=== PATIENT | female | born 1950 | race Caucasian/White ===

== ENCOUNTER 2021-10-25 13:19 | Outpatient (CLI) | payer MEDICARE, MEDICAID, SELFPAY ==
--- NOTE | 2021-10-25 13:27 | CT_ITS ---
WS: [id number] LDCT LUNG CANCER SCREENING HISTORY: HX OF TOBACCO USE TECHNIQUE: Axial imaging performed from the apices to 1 cm below the costophrenic angles. Coronal and sagittal reformats are submitted with axial MIP series. All CT scans at [facility] use at least one of these dose optimization techniques: automated exposure control; mA and/or kV adjustment per patient size (includes targeted exams where dose is matched to clinical indication); or iterativ e reconstruction. DLP: 79.10 mGy.cm DIvol: Mean CTDIvol: 1.60 (mGy) COMPARISON: None available. Diagnostic quality: Satisfactory Lung Nodules: No pulmonary nodules. Benign granuloma in the LEFT upper lobe. No endobronchial lesions . Lungs: Severe hyperexpansion with bullous emphysema. Heart: Mildly enlarged heart. No pericardial effusion. Other findings: Small benign appearing mediastinal and hilar lymph nodes. Atherosclerotic changes wit hin the aortic arch. No aneurysm. Mildly prominent pulmonary artery. LEFT adrenal adenoma. CT/CT lung screening [id number] IMPRESSION: LUNG-RADS: 1-Negative FOLLOW UP: 12 Month: Continue annual screening with LDCT OTHER FINDINGS (S MODIFIER): None.
== END 2021-10-25 13:20 | disposition home or self-care (01) ==
LOC: RAD 13:22
PROVIDERS: Family Provider Nurse Practitioner Family; PCP Nurse Practitioner Family; Visit Provider Nurse Practitioner Family
DX: Z12.2 Encounter for screening for malignant neoplasm of respiratory organs (principal); Z87.891 Personal history of nicotine dependence
CPT/HCPCS: 71271

== ENCOUNTER 2021-11-08 13:54 | Outpatient (CLI) | payer MEDICARE, MEDICAID, SELFPAY ==
--- NOTE | 2021-11-08 13:59 | MM_ITS ---
WS: [id number] BILATERAL 3D TOMOSYNTHESIS DIGITAL SCREENING MAMMOGRAPHY WITH CAD CLINICAL INFORMATION: SCREENING HISTORY: Screening mammogram. Lumpy RIGHT breast COMPARISON: TECHNIQUE: Bilateral CC and MLO views. FINDINGS: Scattered fibroglandular densities bilaterally. Punctate and lucent centered calcifications. Vascular calcification. No suspicious focal mass, asymmetry, calcifications, or architectural distortion. No evidence of malignancy. MM/[place] [id number] IMPRESSION: BI-RADS: 2-Benign FOLLOW UP: 1 Year Follow-up Recommend return to annual screening mammography.
== END 2021-11-08 13:55 | disposition home or self-care (01) ==
LOC: RAD 13:54
PROVIDERS: Family Provider Nurse Practitioner Family; PCP Nurse Practitioner Family; Visit Provider Nurse Practitioner Family
DX: Z12.31 Encounter for screening mammogram for malignant neoplasm of breast (principal)
CPT/HCPCS: 77063; 77067

== ENCOUNTER 2021-11-21 13:11 | Outpatient (CLI) | payer MEDICARE, MEDICAID, SELFPAY | END 2021-11-21 13:12 | disposition home or self-care (01) | LOC: ENDOOACUTE 11-23 09:30 | PROVIDERS: Family Provider Nurse Practitioner Family; PCP Nurse Practitioner Family; Referring Provider Nurse Practitioner Family; Visit Provider Internal Medicine | DX: E27.8 Other specified disorders of adrenal gland (principal); F17.200 Nicotine dependence, unspecified, uncomplicated | CPT/HCPCS: 82088; 84244; 99204 ==

== ENCOUNTER 2021-11-23 10:02 | Outpatient (CLI) | payer MEDICARE, MEDICAID, SELFPAY ==
[2021-11-23 12:12] LABS: Urine Creatinine 21 mg/dL (28-217)
[2021-11-23 12:14] LABS: Creatinine 24 Hour Urine 640.5 mg/dL (601-1689); Total Volume Urine 3050 ml
[2021-11-27 20:53] LABS: Calculated Total (E+NE) 30 mcg/24 h (26-121)
[2021-11-28 18:44] LABS: Free Cortisol Urine 21.7 mcg/24 h (4.0-50.0); Total Urine 2500 mL; Urine Creatinine 0.55 g/24 h (0.50-2.15)
== END 2021-11-23 10:03 | disposition home or self-care (01) ==
LOC: LAB 10:10
PROVIDERS: Internal Medicine; PCP Nurse Practitioner Family; Visit Provider Nurse Practitioner Family
DX: E27.8 Other specified disorders of adrenal gland (principal)
CPT/HCPCS: 82384; 82530; 82570

== ENCOUNTER 2022-01-16 06:58 | Outpatient (CLI) | payer MEDICARE, MEDICAID, SELFPAY ==
[2022-01-16 07:42] LABS: Blood Urea Nitrogen 10 mg/dL (8-23)
[2022-01-16] MEDS: iohexol 350 mg/mL 100 mL Btl IV (07:55)
--- NOTE | 2022-01-16 09:00 | CT_ITS ---
WS: [id number] CT adrenals with and without contrast. HISTORY: adrenal mass Noncontrast 2 mm imaging is performed through the abdomen with attention to the adrenal glands. Addit ional 1 minute and 15 minute delayed images are then performed through the adrenal glands. CONTRAST: Omnipaque 350; 95 mL IV. DLP: 1253.[address] scans at [facility] use at least one of these dose optimization techniques: automated e xposure control; mA and/or kV adjustment per patient size (includes targeted exams where dose is matc hed to clinical indication); or iterative reconstruction. COMPARISON: Lung screening 10/25/2021 Lower thorax: Chronic emphysematous changes at the lung bases. Liver: Normal. No intrahepatic dilatation. Gallbladder: Normal. Pancreas: Normal. Spleen: Normal. ADRENAL GLANDS. RIGHT: Normal. No mass or enlargement. LEFT: Very mild thickening of the LEFT adrenal gland. Very slight bulbous contour of the body of the adrenal measures 8 x 10 mm. Hounsfield units are low on the noncontrast study consistent with an breanna brianne. Absolute washout value consistent with adenoma. No solid mass. Mild hyperplasia of the medial an d lateral limbs. Right kidney: Normal size. 2 small to characterize low-attenuation nodule in the mid kidney. Left kidney: Normal size. Low-attenuation cortical nodules. 2 small to characterize. No solid mass or obstruction. Aorta: Mild atherosclerosis aorta. Calcifications extend into the proximal mesenteric arteries. GI tract: As visualized in the upper abdomen normal. No adenopathy or free fluid. Abdominal wall: No hernia. Visualized osseous structures: Unremarkable. CT/CT abdomen wo/w con [id number] IMPRESSION: 1. Very tiny LEFT adrenal adenoma involving the body with additional hyperplas ia of the medial and lateral limbs. 2. Normal RIGHT adrenal gland. 3. Emphysema.
== END 2022-01-16 06:59 | disposition home or self-care (01) ==
LOC: RAD 06:59
PROVIDERS: PCP Nurse Practitioner Family; Visit Provider Internal Medicine
DX: E27.8 Other specified disorders of adrenal gland (principal); D35.02 Benign neoplasm of left adrenal gland; J43.2 Centrilobular emphysema; J96.11 Chronic respiratory failure with hypoxia; J96.12 Chronic respiratory failure with hypercapnia; F17.210 Nicotine dependence, cigarettes, uncomplicated; Z99.81 Dependence on supplemental oxygen
CPT/HCPCS: 74170; 82565; 84520; 99204

== ENCOUNTER 2023-04-01 12:58 | Emergency (ER) | payer MEDICARE, MEDICAID, SELFPAY ==
[2023-04-01] MEDS: HYDROcodone-acetaminophen 5-325 mg Tablet 1 TAB PO (13:34)
[2023-04-01 13:36] VITALS: BMI 21.9
--- NOTE | 2023-04-01 13:47 | W.ED.SKABFB ---
HPI - Skin/Abscess/Foreign Bdy General: Chief complaint: Skin/Abscess/Foreign Body Stated complaint: lump on right butt cheek Time Seen by Provider: 04/01/23 13:16 Source: patient Mode of arrival: ambulatory Limitations: no limitations History of Present Illness: 72 female states she has had an abscess to her right buttocks its been there for over a week she states she started having some increased pain rates her pain a 6 out of 10 especially the setting denies any fever denies any drainage denies any Associated symptoms: Deny chills, fever(s), nausea or vomiting Review of Systems Const: Denies: fever(s), chills, body aches or change in appetite ENMT: Denies: throat pain or dental pain Card: Denies: chest pain Resp: Denies: dyspnea GI: Denies: abdominal pain, nausea, vomiting or diarrhea Musc: Denies: neck pain or back pain Skin/Breast: Denies: rash Neuro: Denies: headache(s) PFSH ED PFSH: Medical History High cholesterol Stroke Surgical History Hx of hysterectomy Family History Father Heart attack Diabetes Mother Tuberculous abscess of lung Social History Smoking and tobacco/nicotine status: current every day tobacco/nicotine user (0.5 ppd) cigarettes Packs smoked per day: 1 Years cigarettes smoked: 43 Quit status (tobacco/nicotine): not considering quitting Second hand smoke exposure: No Alcohol intake: never Substance/Drug Use: never Adopted: No Caregiver/support person: Yes Lives independently: Yes Household members: none Housing: House Marital status: / Number of children: 3 Highest education level completed: 11th Grade service: No Current occupational status: retired Physical Exam Const: COMMON NORMALS: no acute distress and patient oriented x3 HENMT: COMMON NORMALS: normocephalic and atraumatic HEAD & SCALP: normocephalic and atraumatic Eye: COMMON NORMALS: conjunctivae normal CONJUNCTIVA: Yes conjunctivae normal Neck/C-Spine: COMMON NORMALS: supple Chest: COMMONS NORMALS: normal inspection of the chest Resp: COMMON NORMALS: normal respiratory effort GI: OTHER: large abscess noted to right buttocks Extremity: COMMON NORMALS: normal to inspection Neuro: COMMON NORMALS: patient oriented x3 Procedures Abscess I/D Site: other (buttock) Side (if applicable): right Local Anesthetic: lidocaine 1% Amount of anesthesia used (mL): 8 Technique: incised with #11 blade Packing used?: iodoform MDM - Skin/Abscess/Foreign Bdy Medicial Decision Making patient presents here with an abscess to the right buttocks abscess was incised and drained packing was placed she is to return in 2 days for packing removal we will place her on clindamycin she is to follow-up return if worsening she understands agrees to plan. Medical Records I reviewed the patient's medical records. No radiology studies performed this visit Discharge Plan Discharge Patient Disposition: Home Clinical Impression: Abscess of buttock, right Condition: Stable Prescriptions: New hydrocodone-acetaminophen 5-325 mg tablet 1 tab PO Q6H PRN (Reason: pain) Qty: 14 0RF clindamycin HCl 300 mg capsule 300 mg PO Q8H 7 Days Qty: 21 0RF No Action (DME) oxygen-air delivery systems Device See Rx Instructions .Route Rx Instructions: As directed clorazepate dipotassium 15 mg tablet 7.5 mg PO BID PRN multivitamin Tablet 1 tab PO DAILY albuterol sulfate 90 mcg/actuation HFA aerosol inhaler 1 puff inhalation QID PRN naproxen 500 mg tablet 500 mg PO BID PRN (Reason: pain) ezetimibe 10 mg tablet 10 mg PO DAILY Bevespi Aerosphere 9-4.8 mcg HFA aerosol inhaler 2 puff inhalation BID Qty: 10.7 3RF Discharge Orders: Discharge ED (Routine); Ordered 04/01/23 Ordered By: Ratna Emery Referrals: Carmel Pierre FNP-C [Primary Care Provider] - 1-3 days Discharge Diet: Advance as tolerated Discharge Activity: Resume usual activity Patient Instructions: Abscess (ED) Activity Restrictions/Additional Instructions: return in 2-3 days for packing removal Coding Level of Care Code ED Chief Technology Officer for Natalyg Yasmani
[2023-04-01] MEDS: clindamycin 150 mg Capsule 300 MG PO (13:54)
[2023-04-01] MEDS: lidocaine 1% INJ 10 mL (per mL) 20 ML INJECTION (13:57)
[2023-04-01 14:00] VITALS: BP 127/68; PULSE 111; O2SAT 91
== END 2023-04-01 13:57 | disposition home or self-care (01) ==
PROVIDERS: Emergency Provider Emergency Medicine; PCP Nurse Practitioner Family
DX: L02.31 Cutaneous abscess of buttock (principal); Z86.73 Personal history of transient ischemic attack (TIA), and cerebral infarction without residual deficits; F17.210 Nicotine dependence, cigarettes, uncomplicated
CPT/HCPCS: 10060; 87070; 87077; 87186; 99283

== ENCOUNTER 2023-04-03 10:26 | Emergency (ER) | payer MEDICARE, MEDICAID, SELFPAY ==
[2023-04-03 10:44] VITALS: BP 163/74; PULSE 95; RESP 18; TEMP 36.7; O2SAT 88; BMI 23.3
--- NOTE | 2023-04-03 11:01 | W.ED.WOUNDLC ---
HPI - Wound/Laceration General: Chief Complaint: Wound/Laceration Stated Complaint: needs a hole re packed Time Seen by Provider: 04/03/23 10:31 Source: patient Mode of arrival: ambulatory Limitations: no limitations History of Present Illness: 72 yr old female presents to the ER for wound packing. Pt had an abscess on the R buttock that she had opened 2 days ago. Pt reports it was MRSA. She reports pain has improved and there is still some active drainage from the wound. Packing fell out this am so she was told to come back for repacking. No fevers reported. Review of Systems General: Reports: 10 or more systems reviewed and unremarkable except in HPI and below PFSH ED PFSH: Medical History High cholesterol Stroke Surgical History Hx of hysterectomy Family History Father Heart attack Diabetes Mother Tuberculous abscess of lung Social History Smoking and tobacco/nicotine status: current every day tobacco/nicotine user (0.5 ppd) cigarettes Packs smoked per day: 1 Years cigarettes smoked: 43 Quit status (tobacco/nicotine): not considering quitting Second hand smoke exposure: No Alcohol intake: never Substance/Drug Use: never Adopted: No Caregiver/support person: Yes Lives independently: Yes Household members: none Housing: House Marital status: / Number of children: 3 Highest education level completed: 11th Grade service: No Current occupational status: retired Physical Exam Const: COMMON NORMALS: no acute distress, average body habitus, patient oriented x3, healthy appearing and well nourished Resp: COMMON NORMALS: normal respiratory effort EFFORT & INSPECTION: Yes able to speak in complete sentences Cardio: COMMON NORMALS: regular rate RATE: regular rate Extremity: COMMON NORMALS: normal to inspection and no pedal edema Neuro: COMMON NORMALS: patient oriented x3 and moves all extremities Psych: COMMON NORMALS: mental status grossly normal and Normal thought process present THOUGHT PROCESS: Normal thought process present Skin: NARRATIVE SKIN EXAM: pt has an open wound the R buttock. No active drainage. Minimal tenderness Course ED course: Pt presents for wound back on the R buttock. Vital Signs: Vital signs: Vital Signs Temperature 98.1 F 04/03/23 10:44 Pulse Rate 95 04/03/23 10:44 Respiratory Rate 18 04/03/23 10:44 Blood Pressure 163/74 04/03/23 10:44 Pulse Oximetry 88 L 04/03/23 10:44 Oxygen Delivery Me thod Nasal Cannula 04/03/23 10:44 Oxygen Flow Rate 2 04/03/23 10:44 MDM - Wound/Laceration Medical Decision Making Wound is gaping and looks good. No erythema surrounding it. Healthy tissue at the base. No active drainage. Wound was packed with 1/4 inch packing and a new dressing was placed. Home wound care discussed. F/u with PCP in 5-7 days. No radiology studies performed this visit Critical Care Time Critical Care Time: Critical Care Time: No Discharge Plan Discharge Patient Disposition: Home Clinical Impression: Abscess of buttock, right Condition: Stable Prescriptions: No Action (DME) oxygen-air delivery systems Device See Rx Instructions .Route Rx Instructions: As directed clorazepate dipotassium 15 mg tablet 7.5 mg PO BID PRN multivitamin Tablet 1 tab PO DAILY albuterol sulfate 90 mcg/actuation HFA aerosol inhaler 1 puff inhalation QID PRN naproxen 500 mg tablet 500 mg PO BID PRN (Reason: pain) ezetimibe 10 mg tablet 10 mg PO DAILY Bevespi Aerosphere 9-4.8 mcg HFA aerosol inhaler 2 puff inhalation BID Qty: 10.7 3RF hydrocodone-acetaminophen 5-325 mg tablet 1 tab PO Q6H PRN (Reason: pain) Qty: 14 0RF clindamycin HCl 300 mg capsule 300 mg PO Q8H 7 Days Qty: 21 0RF Discharge Orders: Discharge ED (Routine); Ordered 04/03/23 Ordered By: Christina Horton Referrals: Carmel Pierre FNP-C [Primary Care Provider] - Discharge Diet: Usual diet Discharge Activity: Resume usual activity Patient Instructions: Opioid Safety, Pain Management Activity Restrictions/Additional Instructions: Leave packing in for the next 2-3 days. When it falls out you are okay to leave it out. Keep wound clean. F/U with PCP in 5-7 days. Return to the ER with any new or worsening symptoms. Coding Level of Care Code ED Corporate Quality Engineer for Cheryl Gruber
== END 2023-04-03 11:25 | disposition home or self-care (01) ==
PROVIDERS: Emergency Provider Physician Assistant; PCP Nurse Practitioner Family
DX: L02.31 Cutaneous abscess of buttock (principal); Z86.73 Personal history of transient ischemic attack (TIA), and cerebral infarction without residual deficits; F17.210 Nicotine dependence, cigarettes, uncomplicated
CPT/HCPCS: 99282

== ENCOUNTER 2024-07-04 13:45 | Emergency (ER) | payer MEDICARE, MEDICAID, SELFPAY ==
--- NOTE | 2024-07-04 13:47 | XR_ITS ---
WS: [id number] Exam: XR chest 1V portable [id number] Date/Time of Exam: 07/04/2024 1:54 PM Reason For Exam: dyspnea/cough No previous exams. Lungs are hyperinflated and clear. Coarsening of interstitial markings throughout both lungs. Normal cardiomediastinal silhouette. Regional bony elements appear normal. No pleural effusion. XR/XR chest 1V portable [id number] IMPRESSION: 1. No acute cardiopulmonary finding. Coarsening of interstitial markings that m ay be chronic.
--- NOTE | 2024-07-04 13:48 | ECG_ITS ---
[facility]: 2024-[facility]04 Pat Name: Qi Marmolejo Department: Room: Gender: Female Systems Mgr: : [id number] Requested By: John Horton Order Number: [id number] Mone MD: Anuj Sanchez M.D. Measurements Intervals [place] Rate: 102 P: 78 MA: 139 QRS: 82 QRSD: 78 T: 72 QT: 339 QTc: 442 Interpretive Statements SINUS TACHYCARDIA WITH OCCASIONAL SUPRAVENTRICULAR PREMATURE COMPLEXES NONSPECIFIC T-WAVE ABNORMALITY No previous ECG available for comparison Electronically Signed On 07-07-2024 12:41:29 BEEF SPLITTER by Anuj Sanchez M.D. [email or web address]
[2024-07-04 13:49] VITALS: BP 99/58; PULSE 113; RESP 22; TEMP 36.8; O2SAT 92; BMI 20.5
--- NOTE | 2024-07-04 13:53 | ED_ITS ---
HPI - SOB/Dyspnea 2 General: Chief Complaint: Shortness of Breath/Dyspnea Stated Complaint: sob Time Seen by Provider: 07/04/24 13:47 History of Present Illness: HPI Narrative: 73-year-old female presents to the emerg ency room with report of being short of breath at the clinic. They reported O2 sats at 60% by nasal cannula however it was found that her oxygen regulator was not working properly when she was placed on her baseline oxygen at 2 L she improved she did require a little bit more than her usual and we had increased her to 2.5lpm and her sat was at 98%. She denies any chest pain. She did have a fever. Patient reports nonproductive cough and wheezing. 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 11/21/21 07/04/24 tablet multivitamin 1 tab PO DAILY 11/21/2106/09 oxygen-air delivery systems 11/21/21 07/04/24 albuterol sulfate 90 mcg/actuation 1 puff inhalation Q ID PRN 01/16/22 07/04/24 aerosol inhaler Shortness Of Breath Or Wheez ing naproxen 500 mg tablet 500 mg PO BID PRN pain 01/1607/04/24 acetaminophen 325 mg tablet 650 mg PO QID PRN Fever Or Pain 07/04/24 07/04/24 (Tylenol) ibuprofen 200 mg tablet (Advil) 800 mg PO Q6H PRN Feve r Or Pain 07/04/24 07/04/24 meclizine 25 mg tablet 25 mg PO DAILY PRN menier's disease 07/04/24 07/04/24 Previous Rx's ?Medication ?Instructions ?Recorded glycopyrrolate 9 mcg-formoterol 2 puff inhalation BID #10.7 grams 10/01/22 4.8 mcg HFA aerosol inhaler (Bevespi Aerosphere) albuterol sulfate 90 mcg/actuation 2 inh inhalation Q4 H PRN shortness 07/04/24 aerosol inhaler of breath or wheezing #18 gr ams methylprednisolone 4 mg tablets in See Rx Instructions PO .COMPLEX 01/27/25 a dose pack (Medrol (Derek)) #21 ea Allergies Allergy/AdvReac Type Severity Reaction Status Date / Time sulfamethoxazole (From Allergy swell and Verified 04/03/23 10:45 Bactrim) itch and rash trimethoprim (From Bactrim) Allergy swell and Verified 04/03/23 10:45 itch and rash Review of Systems 2 Const: Denies: fever(s) or chills Card: Denies: chest pain Resp: Reports: dyspnea, productive cough, wheezing and chest congestion GI: Denies: abdominal pain : Denies: dysuria, urinary frequency or urinary urgency Musc: Denies: neck pain or back pain Skin/Breast: Denies: rash PFSH ED 2 PFSH: Medical History Stroke High cholesterol Surgical History Hx of hysterectomy Family History Father Heart attack Diabetes Mother Tuberculous abscess of lung Social History Smoking and tobacco/nicotine status: current every day tobacco/nicotine user (0.5 ppd) cigarettes Packs smoked per day: 1 Years cigarettes smoked: 43 Quit status (tobacco/nicotine): not considering quitting Second hand smoke exposure: No Alcohol intake: never Substance/Drug Use: never Adopted: No Caregiver/support person: Yes Lives independently: Yes Household members: none Housing: House Marital status: / Number of children: 3 Highest education level completed: 11th Grade service: No Current occupational status: retired Physical Exam 2 Const: GENERAL APPEARANCE: cooperative ORIENTATION/CONSCIOUSNESS: Yes awake, Yes oriented to person, Yes oriented to place and Yes oriented to time HENMT: COMMON NORMALS: normocephalic, atraumatic and hearing grossly normal bilaterally HEAD & SCALP: normocephalic and atraumatic Resp: COMMON NORMALS: normal respiratory effort, No retractions, No use of accessory muscles and clear to auscultation bilaterally AUSCULTATION: clear to auscultation bilaterally Cardio: COMMON NORMALS: regular rate, regular rhythm and No murmurs present (Cardio) RATE: regular rate RHYTHM: regular rhythm GI: COMMON NORMALS: Soft to palpation and No hepatosplenomegaly present A USCULTATION: Yes normoactive bowel sounds PALPATION: Yes Soft to palpation, No Tenderness to palpation present (GI), No Guarding due to palpation present (GI) and Yes No hepatosplenomegaly present Extremity: COMMON NORMALS: normal to inspection, capillary refill normal, no clubbing, cyanosis or edema, no calf tenderness and no pedal edema Neuro: SENSORIUM/ORIENTATION: Yes oriented to person, Yes oriented to place and Yes oriented to time Skin: COMMON NORMALS: no rashes or lesions noted GENERAL SKIN EXAM: no rashes or lesions noted Course 2 Vital Signs: Vital signs: Vital Signs Temperature 98.3 F 07/04/24 13:49 Pulse Rate 97 07/04/24 16:06 Respiratory Rate 18 07/04/24 15:53 Blood Pressure 111/61 07/04/24 16:06 Pulse Oximetry 98 07/04/24 16:06 Oxygen Delivery Me thod Nasal Cannula 07/04/24 15:53 Oxygen Flow Rate 2.5 07/04/24 15:53 MDM - SOB/Dyspnea Medical Decision Making RSV bronchiolitis. No sign of acute infiltrate patient tolerating well slight increase in oxygen will discharge home steroid taper continue to aggressively use albuterol nebulizers and inhalers continue your other medications follow-up with your primary care doctor about improvement if worsens return to the emergency room Medical Records I reviewed the patient's medical records. Lab Data I reviewed the patient's lab results. 07/04/24 14:15 07/04/24 14:15 Labs/Radiology: Radiology Impressions Chest X-Ray 07/04/24 13:47 IMPRESSION: 1. No acute cardiopulmonary finding. Coarsening of interstitial markings that may be chronic. Laboratory Results WBC 10.14 10^3/uL (3.29-11.43) 07/04/24 14:15 RBC 4.27 10^6/uL (3.85-5.65) 07/04/24 14:15 Hgb 13.00 g/dL (11.27-16.99) 07/04/24 14:15 Hct 39.4 % (36-47) 07/04/24 14:15 MCV 92.3 fl (85-98) 07/04/24 14:15 MCH 30.4 pg (27-33) 07/04/24 14:15 MCHC 33.0 g/dL (30-55) 07/04/24 14:15 RDW 13.2 % (12.1-15.1) 07/04/24 14:15 Plt Count 222 10^3/cmm (157-399) 07/04/24 14:15 MPV 10.4 fL (7.4-10.4) 07/04/24 14:15 Neut % (Auto) 83.1 % 07/04/24 14:15 Lymph % (Auto) 8.2 % 07/04/24 14:15 Woodruff % (Auto) 8.0 % 07/04/24 14:15 Eos % (Auto) 0.0 % 07/04/24 14:15 Baso % (Auto) 0.3 % 07/04/24 14:15 Neut # (Auto) 8.43 10^3/uL (1.8-7.7) H 07/04/24 14:15 Lymph # (Auto) 0.8 10^3/uL (0.8-4.8) 07/04/24 14:15 Woodruff # (Auto) 0.8 10^3/uL (0.2-0.9) 07/04/24 14:15 Eos # (Auto) 0.0 10^3/uL (0.0-0.8) 07/04/24 14:15 Baso # (Auto) 0.0 10^3/uL (0.0-0.1) 07/04/24 14:15 Nucleated RBC % (auto) 0 % 07/04/24 14:15 Nucleated RBCs # 0.0 /100WBC 07/04/24 14:15 Sodium 134 mmol/L (136-145) L 07/04/24 14:15 Potassium 3.9 mmol/L (3.5-5.1) 07/04/24 14:15 Chloride 95 mmol/L (98-107) L 07/04/24 14:15 Carbon Dioxide 27 mmol/L (22-29) 07/04/24 14:15 Anion Gap 15.9 (5-19) 07/04/24 14:15 BUN 9 mg/dL (8-23) 07/04/24 14:15 Creatinine 0.8 mg/dL (0.5-0.9) 07/04/24 14:15 GFR Calculation Not Reportable 07/04/24 14:15 Glucose 114 mg/dL (65-115) 07/04/24 14:15 Calculated Osmolality 278 mOsm/kg (285-295) L 07/04/24 14:15 Lactic Acid 1.2 mmol/L (0.5-2.2) 07/04/24 14:15 Calcium 8.4 mg/dL (8.5-10.5) L 07/04/24 14:15 Total Bilirubin 0.2 mg/dL (0.15-1.2) 07/04/24 14:15 AST 22 U/L (0-32) 07/04/24 14:15 ALT 14 U/L (0-33) 07/04/24 14:15 Alkaline Phosphatase 73 U/L (35-105) 07/04/24 14:15 Troponin T Baseline 30 ng/L (0-10) H 07/04/24 14:15 Total Protein 6.1 g/dL (6.6-8.7) L 07/04/24 14:15 Albumin 3.8 g/dL (3.5-5.2) 07/04/24 14:15 Globulin 2.3 g/dL (1.3-4.6) 07/04/24 14:15 Coronavirus (PCR) Negative (Negative) 07/04/24 14:19 Influenza A (PCR) Negative (Negative) 07/04/24 14:19 Influenza Type B (PCR) Negative (Negative) 07/04/24 14:19 RSV (PCR) Positive (Negative) A 07/04/24 14:19 All radiology interpretation(s) finalized by discharge Discharge Plan Discharge Patient Disposition: Home Clinical Impression: RSV bronchiolitis, Acute exacerbation of chronic obstructive airways disease Condition: Stable Prescriptions: New methylprednisolone [Medrol (Derek)] 4 mg tablets,dose pack See Rx Instructions .ROUTE .COMPLEX Qty: 21 0RF Rx Instructions: orally per package directions albuterol sulfate 90 mcg/actuation HFA aerosol inhaler 2 inh INHALATION Q4H PRN (Reason: shortness of breath or wheezing) Qty: 18 0RF No Action (DME) oxygen-air delivery systems Device See Rx Instructions .Route Rx Instructions: As directed clorazepate dipotassium 15 mg tablet 7.5 mg PO BID PRN (Reason: menier's disease ) multivitamin Tablet 1 tab PO DAILY albuterol sulfate 90 mcg/actuation HFA aerosol inhaler 1 puff inhalation QID PRN (Reason: Shortness Of Breath Or Wheezing) naproxen 500 mg tablet 500 mg PO BID PRN (Reason: pain) Bevespi Aerosphere 9-4.8 mcg HFA aerosol inhaler 2 puff inhalation BID Qty: 10.7 3RF acetaminophen [Tylenol] 325 mg Tablet 650 mg PO QID PRN (Reason: Fever Or Pain) ibuprofen [Advil] 200 mg Tablet 800 mg PO Q6H PRN (Reason: Fever Or Pain) meclizine 25 mg Tablet 25 mg PO DAILY PRN (Reason: menier's disease ) Discharge Orders: Discharge ED (Routine); Ordered 07/04/24 Ordered By: John Son Referrals: Carmel Pierre SANITATION LABORER-C [Primary Care Provider] - Discharge Diet: Usual diet Discharge Activity: Increase activity as tolerated Patient Instructions: RSV (Respiratory Syncytial Virus) Infection (ED), Opioid Safety, Pain Management Activity Restrictions/Additional Instructions: Thank you for choosing [facility] for your healthcare needs today. It is very important that you follow up as instructed or that you return to the Emergency Department should you have concerns or if your condition changes or worsens in any way. You are seen in the emergency room with complaints of shortness of breath. Your oxygen sats remained stable and while you are in the emergency room on 3 L/min. He continued at 3 L/min. You did test positive for RSV. Recommend you start start oral steroid taper tomorrow use albuterol nebulizers and or inhalers as needed Print Language: Syriac Coding Level of Care Code ED Visual Education Teacher for Cheryl Gruber
[2024-07-04 14:03] VITALS: BP 93/65; PULSE 106; O2SAT 97
[2024-07-04 14:29] LABS: Basophils % 0.3 %; Hematocrit 39.4 % (36-47); Lymphocytes # 0.8 10^3/uL (0.8-4.8); Lymphocytes % 8.2 %; Mean Corpuscular Hemoglobin 30.4 pg (27-33); Mean Corpuscular Volume 92.3 fl (85-98); Mean Platelet Volume 10.4 fL (7.4-10.4); Monocytes # 0.8 10^3/uL (0.2-0.9); Neutrophils # 8.43 10^3/uL (1.8-7.7); Neutrophils % 83.1 %; Nucleated Red Blood Cells % 0 %; Platelet Count 222 10^3/cmm (157-399); Red Blood Count 4.27 10^6/uL (3.85-5.65); Red Cell Distribution Width 13.2 % (12.1-15.1); White Blood Count 10.14 10^3/uL (3.29-11.43)
[2024-07-04 14:48] LABS: Alanine Aminotransferase 14 U/L (0-33); Albumin Level 3.8 g/dL (3.5-5.2); Alkaline Phosphatase 73 U/L (35-105); Anion Gap 15.9 (5-19); Aspartate Amino Transferase 22 U/L (0-32); Blood Urea Nitrogen 9 mg/dL (8-23); Calcium 8.4 mg/dL (8.5-10.5); Carbon Dioxide 27 mmol/L (22-29); Chloride 95 mmol/L (98-107); Creatinine Clr Calc Pharmacy 48.3253; Globulin 2.3 g/dL (1.3-4.6); Glucose 114 mg/dL (65-115); Osmolality Calculated 278 mOsm/kg (285-295); Potassium 3.9 mmol/L (3.5-5.1); Sodium 134 mmol/L (136-145); Total Bilirubin 0.2 mg/dL (0.15-1.2); Total Protein 6.1 g/dL (6.6-8.7)
[2024-07-04 14:49] LABS: Troponin(5th) Baseline 30 ng/L (0-10)
[2024-07-04 14:57] LABS: Lactic Sepsis W/Reflex 1.2 mmol/L (0.5-2.2)
[2024-07-04 15:02] LABS: Covid PCR NEGATIVE (Negative); Influenza A NEGATIVE (Negative); Influenza B NEGATIVE (Negative)
[2024-07-04 15:03] LABS: Respiratory Syncytial Virus Ce POSITIVE (Negative)
[2024-07-04] MEDS: dexamethasone 10 mg/mL INJ IM (15:48)
[2024-07-04 15:49] VITALS: BP 94/58; PULSE 96; O2SAT 94
[2024-07-04] MEDS: ipratropium-albuterol 3 mL Neb INHALATION (15:52)
[2024-07-04 15:53] VITALS: PULSE 93; RESP 18; O2SAT 95
[2024-07-04 15:55] VITALS: PULSE 94
[2024-07-04 16:06] VITALS: BP 111/61; PULSE 97; O2SAT 98
== END 2024-07-04 16:07 | disposition home or self-care (01) ==
PROVIDERS: Emergency Provider Family Medicine; PCP Nurse Practitioner Family
DX: J21.0 Acute bronchiolitis due to respiratory syncytial virus (principal); J44.1 Chronic obstructive pulmonary disease with (acute) exacerbation; Z11.52 Encounter for screening for COVID-19; F17.210 Nicotine dependence, cigarettes, uncomplicated
CPT/HCPCS: 36415; 71045; 80053; 83605; 84484; 85025; 87637; 93005; 94640; 99285; J1100